=== PATIENT | female | born 1960 | race Caucasian/White ===

== ENCOUNTER → 2022-10-05 16:19 | Outpatient (CLI) | payer OTHER, SELFPAY ==
[2022-10-05 17:31] LABS: Add Manual Diff / Slide Review NO; Basophils Absolute Auto 0 /uL (0-100); Basophils Percent Auto 0.6 % (0-2); Eosinophils Absolute Auto 200 /uL (0-450); Eosinophils Percent Auto 2.6 % (2-4); Hematocrit 36.4 % (36-46); Hemoglobin 12.3 g/dL (12.0-16.0); Lymphocytes Absolute Auto 1600 /uL (1100-4500); Lymphocytes Percent Auto 26.4 % (25-40); Mean Corpuscular HGB Conc 33.8 % (30-36); Mean Corpuscular Volume 82.7 fL (80-100); Monocytes Absolute Auto 400 /uL (0-900); Monocytes Percent Auto 5.8 % (3-14); Neutrophils Absolute Auto 4000 /uL (1500-7000); Neutrophils Percent Auto 64.6 % (50-75); Platelet Count 229 X10^3/uL (150-400); Red Cell Distribution Width 15.5 % (11.6-14.8); White Blood Cell Count 6.2 X10^3/uL (4.5-11.0)
[2022-10-05 17:38] LABS: Appearance Urine UA CLEAR; Bilirubin Urine UA NEGATIVE (NEGATIVE); Color Urine UA YELLOW; Glucose Urine UA NEGATIVE (Negative); Ketones Urine UA NEGATIVE (NEGATIVE); Leukocyte Esterase Urine UA TRACE (NEGATIVE); Nitrite Urine UA NEGATIVE (Negative); Occult Blood Urine UA TRACE-INTACT (Negative); Protein Urine UA 1+ (Negative); Specific Gravity Urine UA 1.025 (1.000-1.035); Urobilinogen Urine UA 0.2 E.U./dL (0.2)
[2022-10-05 17:41] LABS: pH Urine UA 5.5 (4.5-8.0)
[2022-10-05 17:44] LABS: Bacteria Urine None Seen; Culture Indicated Urine Specimen Cultured; RBC Urine None Seen (0-5/HPF); Squamous Epithelial Cell Urine 1-5 /HPF (0-5/HPF); WBC Urine 1-5/HPF (0-5/HPF)
[2022-10-05 18:24] LABS: BUN Creatinine Ratio 23.1 (6-22); Blood Urea Nitrogen 31 mg/dL (7-17); Calcium 9.7 mg/dL (8.4-10.2); Carbon Dioxide 27 mmol/L (22-32); Chloride 100 mmol/L (98-107); Estimated Glomerular Filt Rate 44 mL/min (>60); Glucose 96 mg/dL (80-110); HEMOLYSIS < 15 (0-50); Potassium 4.3 mmol/L (3.4-5.1); Sodium 137 mmol/L (137-145)
[2022-10-07 09:34] LABS: Labcorp Hemoglobin (Hb) A1c 5.9 % (4.8-5.6)
== END ==
PROVIDERS: PCP Nurse Practitioner Family; Referring Provider Orthopaedic Surgery; Visit Provider Orthopaedic Surgery
DX: Z01.818 Encounter for other preprocedural examination (principal); Z01.812 Encounter for preprocedural laboratory examination; R73.9 Hyperglycemia, unspecified; N39.0 Urinary tract infection, site not specified
CPT/HCPCS: 36415; 80048; 81001; 83036; 85025; 87086; 93005; 93010

== ENCOUNTER 2022-12-27 08:12 | Day surgery (SDC) | payer OTHER, SELFPAY ==
[2022-12-20 08:38] VITALS: BMI 32.5
[2022-12-27] VITALS (14 sets, daily range): BP systolic 100–123; BP diastolic 45–68; PULSE 54–81; RESP 13–17; TEMP 36.1–36.3; O2SAT 98–100; BMI 31.4
--- NOTE | 2022-12-27 06:00 | DI.RAD.S_ITS ---
PROCEDURE: XR KNEE LT 1TO2V INDICATIONS: TKA TECHNIQUE: 2 view(s) of the knee acquired. COMPARISON: None. FINDINGS: Bones: Patient is status post knee joint arthroplasty. Hardware components are in expected positions. Visualized bony structures are intact. Soft tissues: Overlying postoperative changes are noted. IMPRESSION: Expected postsurgical change for left knee arthroplasty. Dictated by: Radha Mora MD, PhD on 12/27/2022 at 14:03 Approved by: Radha Mora MD, PhD on 12/27/2022 at 14:04
--- NOTE | 2022-12-27 08:52 | SUR.OPER ---
Supine on padded OR bed. Pillow under head, arms secured on padded armboards <90 degree abduction. Safety belt across torso. Non-operative leg secured with tape over blanket over lower leg. Operative leg secured in De[employer]o positioner. Foam padded brace at thigh of operative leg.
[2022-12-27] MEDS: LACTATED RINGERS 1,000 ML 42 ML IV (09:12)
[2022-12-27] MEDS: VANCOMYCIN 1,000 MG/200 ML PIGGYBACK 200 MG IV (10:01)
--- NOTE | 2022-12-27 10:23 | PM.PREOP ---
Pre-operative Note Interval Note History & Physical reviewed/Exam performed by Physician: Yes Changes to H&P: No
--- NOTE | 2022-12-27 10:24 | PM.OP.1 ---
Operative Date/Time/Diagnoses Date of procedure: 12/27/22 Time of procedure: 11:20 Pre-op diagnosis: Left knee osteoarthritis Procedure & Clinicians Procedure: Left total knee arthroplasty Same procedure as scheduled: Yes Indications: The patient has had progressively worsening left knee pain with radiographic changes consistent with arthritis. Non-operative management has failed and the patient has requested total knee replacement. The risks, benefits and alternatives to surgery were discussed with the patient prior to proceeding. Risks discussed included, but were not limited to, failure to relieve pain, stiffness, infection, nerve damage, deep venous thrombosis, pulmonary embolism, stroke, coma, heart attack, permanent paralysis and , as well as the potential need for eventual revision of the prosthetic. Surgeon: Jeimy Hadley Plumbing Technician: Yury Mac Anesthesia Type: Spinal Operative Notes Findings: Severe left knee osteoarthritis, adequate stability Closure Type: primary Specimen(s): none sent Prosthetic devices, grafts, tissues, transplants, or devices: [employer] BCS 2 size 3 femur, size 2 tibia, + 12 poly, 32 x 7-1/2 mm patella Estimated Blood Loss (mL): 250 Blood products transfused: none Tourniquet time (min): 75 Procedure in detail: The patient was seen in the pre-operative area, where the patient identified the left knee as the operative site and this was marked with my initials. The patient received pre-operative antibiotics, and was taken to the operating room and placed on the operative table in the supine position. After satisfactory anesthesia, a full time babysitter out was performed. The left leg was encircled with a tourniquet about the proximal thigh, and the leg was prepared from the toes to the tourniquet with ChloroPrep in the usual fashion and draped through sterile drapes. The leg was elevated and exsanguinated with Eschmark bandage and the tourniquet inflated to [250] mmHg pressure. A PA was used throughout the procedure and was essential for adequate retraction, establishing hemostasis and safe implantation of the components. The knee was approached through an approximately 18 cm incision centered over the patella and carried into the knee through a medial parapatellar arthrotomy. A portion of the medial and lateral meniscus was resected. Soft tissue was carefully mobilized around the patella the patella was measured with a caliper. Bone was resected from the patella and the patellar height was reconstituted with up an appropriate sized patellar component. A cover was then placed on the patella. A small amount of additional medial and lateral meniscus was resected. The distal femur was cut at 5?. A [+2] cut was used. It looked like an appropriate distal femoral cut and the cut was made without difficulty. An extramedullary guide was used for the tibial cut. 10 mm was resected off the least affected side.The tibia was prepared. The rotation was assessed. The patient was placed in extension residual medial and lateral meniscus as well as any residual bone was carefully resected. [No] additional tibia was resected. Hemostasis was achieved especially posteriorly. Additional local was injected into the posterior capsule. The extension gap was assessed and additional releases for gap balancing were performed as necessary. It was checked with the gap brazer controlled atmospheric furnace. The femoral component was trial was placed and the notch was finished. The rotation was assessed and the appropriate size femoral guide was placed on the distal femur and finishing cuts were made. There was no evidence of notching. The anterior, posterior and chamfer cuts were then made. The posterior osteophytes and soft tissues were then removed. The posterior capsule was injected with part of a mixture of 60 ml 0.25% Marcaine mixed with 20 ml Exparel for post operative pain control. The remainder of this mixture was injected into the capsule and subcutaneous tissues during cement curing. The tibial and femoral components were then placed and the knee placed through a range of motion. Range of motion was [0-130], with good stability throughout the range. The trials were then removed, and the tibia was finished. The bone was prepared with pulsatile lavage, and dried with a sponge. Cement was applied and the final prosthetics placed. Excess cement was removed during and after cement curing. A brief Betadine soak was performed. After confirming there was no extruded cement posteriorly, the final tibial insert was placed. The knee was copiously irrigated and the tourniquet deflated. Hemostasis was obtained with the Bovie cautery. The capsule was closed with interrupted nonabsorbable suture. The subcutaneous layer was closed with barbed sutures, and the skin with a running 3-0 V-Lock suture and Surgical glue. An Aquacel Ag dressing was applied and the patient was taken to recovery having tolerated the procedure well. Complications: none Post-operative Condition: stable Disposition: same day surgery Plan for aftercare: The patient will be maintained on a standard total knee replacement protocol with weight bearing as tolerated. The patient will receive aspirin and sequential compression devices for DVT prophylaxis. The patient will be discharged home when safe for the home environment.
--- NOTE | 2022-12-27 11:28 | SUR.PREOP ---
Block start time [1104] . Monitoring initiated and maintained throughout procedure. Oxygen and medications given per anesthesiologist instructions. Patient remained stable throughout procedure, no adverse reactions noted. Block end time [1118].
[2022-12-27] MEDS: CEFAZOLIN 2 GM/100 ML PREMIX 100 ML IV ×2 (11:40→20:56)
[2022-12-27] MEDS: TRANEXAMIC ACID 1,000 MG VIAL 2000 MG INJ ×2 (11:45→13:16)
[2022-12-27] MEDS: BUPIVACAINE 0.25% (PF) 60 ML, EPINEPHrine 0.3 MG INJ (12:12)
[2022-12-27] MEDS: BUPIVACAINE LIPOSOME 266 MG/20 ML VIAL INJ (12:20)
[2022-12-27] MEDS: ACETAMINOPHEN 325 MG TABLET 650 MG PO ×2 (15:15→20:56)
[2022-12-27] MEDS: IBUPROFEN 400 MG TABLET PO ×2 (15:15→20:57)
[2022-12-27] MEDS: LACTATED RINGERS 1,000 ML 100 ML IV (15:24)
[2022-12-27] MEDS: OXYCODONE IR 10 MG TABLET PO (16:09)
[2022-12-27] MEDS: ASPIRIN EC 81 MG TABLET PO (20:56)
[2022-12-27] MEDS: OXYCODONE IR 5 MG TABLET PO (20:56)
[2022-12-27] MEDS: DOCUSATE 100 MG CAPSULE PO (20:58)
[2022-12-27] MEDS: METFORMIN HCL 500 MG TABLET PO (20:58)
[2022-12-27] MEDS: ATORVASTATIN 20 MG TABLET 80 MG PO (21:00)
[2022-12-28 00:37] VITALS: BP 92/47; PULSE 69; RESP 18; TEMP 35.6; O2SAT 96
[2022-12-28] MEDS: ACETAMINOPHEN 325 MG TABLET 650 MG PO ×2 (02:00→08:19)
[2022-12-28] MEDS: IBUPROFEN 400 MG TABLET PO ×2 (02:01→06:07)
[2022-12-28] MEDS: LACTATED RINGERS 1,000 ML 100 ML IV ×2 (02:03→10:32)
[2022-12-28] MEDS: CEFAZOLIN 2 GM/100 ML PREMIX 100 ML IV (04:54)
[2022-12-28 04:55] VITALS: BP 120/63; PULSE 77; RESP 16; TEMP 35.8; O2SAT 100
[2022-12-28 06:55] LABS: Hematocrit 27.2 % (36-46); Hemoglobin 9.2 g/dL (12.0-16.0)
[2022-12-28] MEDS: ASPIRIN EC 81 MG TABLET PO (08:20)
[2022-12-28] MEDS: DOCUSATE 100 MG CAPSULE PO (08:20)
[2022-12-28] MEDS: METFORMIN HCL 500 MG TABLET PO (08:20)
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
[2022-12-28 08:30] VITALS: BP 109/53; PULSE 63; RESP 17; TEMP 36.4; O2SAT 100
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
[2022-12-28 09:34] VITALS: BP 108/52; BP 109/51; BP 68/24; PULSE 65; PULSE 67; PULSE 79
--- NOTE | 2022-12-28 09:34 | PT-IP ANOTE ---
OT states that pt's BP is 68/24 and pt will need fluids. Will hold PT and OOB with therapy until BP is in a functional range/after fluids.
[2022-12-28] MEDS: ONDANSETRON 4 MG ODT PO (10:32)
[2022-12-28] MEDS: LACTATED RINGERS 500 ML 1000 ML IV (10:58)
[2022-12-28 11:19] VITALS: BP 119/55; PULSE 63; RESP 17; TEMP 36.4; O2SAT 99
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
--- NOTE | 2022-12-28 12:38 | CM.DANOTE ---
DCP: Case received, EMR reviewed and met with patient. Spouse, Josiah, was at bedside. Introduced self and role. Was able to obtain information regarding patient's baseline activity level prior to hospitalization. DCP assessment completed with information currently available. Patient is a 62 year old female who admitted yesterday morning to the care of the orthopedic team. PCP: Dr. Núñez. Payer: confirmed: Kalyndeshawn Evens. Patient came to the hospital via private vehicle for a surgical procedure. Patient had left total knee arthroplasty. Patient has history of left knee osteoarthritis. Met with patient in her room, spouse at bedside. Patient is alert and oriented. Confirmed that they both reside in [facility]. She has been independent at baseline. She is pursuing outpatient P.T. at [facility]. P: Patient is discharging home today. Vandana Birmingham RN/Marketing Secretary Discharge Planning/Care Management CM Discharge Assessment Start: 12/28/22 12:35 Freq: Status: Active Protocol: Document 12/28/22 12:35 (Rec: 12/28/22 12:38 [id number]) Discharge Planning Assessment Assigned Meal Packer Vandana Birmingham RN/Marketing Secretary Advance Directives? No Advance Directives on File No History Provided By Patient,Medical Record Prior Living Arrangements House Household Members spouse Type of transporation used prior to Drives own vehicle admit Independent with ADL's Yes Is patient alert and oriented? Yes Caregiver for Another Yes DME Already Rented / Owned FWW / Walker Patient/Family Preference OP PT Therapy Barriers to Discharge No Discharge Plan Home Transportation Arrangement Spouse Referrals Initiated None needed Whiteboard Updated in Patient Room with Yes name and ext. # of Meal Packer Review Status In Process Next Review Type Continued Stay Review Pre-Anesthesia Assessment Start: 12/20/22 08:38 Freq: Status: Active Protocol: Document 12/20/22 08:38 CAB (Rec: 12/20/22 09:28 CAB [id number]) Pre-Anesthesia Assessment Patient Information Reviewed Via Phone Assessment Assessment Completed With Patient Diagnostic Results BMP/CMP,CBC,EKG,Urinalysis Comment Labs/EKG @ 10/05/22 Primary Care Provider Anabell Núñez Seen Specialist in Last 12 Months Yes Specialist Seen Orthopedist Primary Language Pashto Square Cutter Required No Height 5 ft 1.5 in Weight 175 lb Body Mass Index (BMI) 32.5 Hearing Ability Normal Visual Assist Glasses Dentition Type Teeth, Natural Present Barriers to Learning Memory Hx Anesthesia Reactions No Hx Family Anesthesia Reaction No Hx Malignant Hyperthermia No Hx Blood Transfusions No Anesthesia Review Requested No Contract Accountant No alcohol intake never Smoking Status Never smoker Substance Use Type does not use Pain Present Pain Reported Musculoskeletal Symptoms Abnormal Gait,Difficulty Walking,Joint Pain History of Falling (Recent or History of No ) Patient is completely paralyzed or No completely immobile Mental Status Oriented to own ability Is patient on oxygen? No Does patient have ODELL/SOB No Hx Sleep Apnea No Currently Taking a Beta Sherry No Hx Chest Pain No Hx SOB No Hx Syncope or Dizziness No Anti-Coagulant Therapy No Has a Grocery Store Clerk No Cardiac Testing No Hx Pacemaker/ICD No Pacemaker Rep Required? No Diet Type At Home Regular Dysphagia No Gastrointestinal Symptoms None Chronic UTI No Urinary Catheter Present No Hx Urinary Self Catheterization No Diabetes Yes: Pt checks blood sugar once a day HgbA1C 5.9 Date 10/05/22 Patient No Lactating No Hx Drug Resistant Organism No Presence of External or Internal Medical No Devices Received a COVID vaccine? No Marital Status Lives With spouse Current Living Arrangements House Number of Floors (Floors) One Floor Number of Stairs To Enter/Railing? 4 Support System Spouse Does the Patient Have Assistance After Yes Surgery Patient Discharge Plan Description Return Home Comment Pt advised one night length of stay per surgeon Feels Safe in Current Environment Yes Been Physically Hurt or Threatened By a No Person in Current Environment Do you have thoughts of harming yourself None or others? Are you currently considering suicide? No Do you have a plan to hurt yourself or No Plan others? Do You Have Any Spiritual Beliefs That No May Affect Your HC Choices? Do You Have Any Cultural Practices That No May Affect Your HC Choices? Comment Dannie Who Can We Speak to About Patient's Care Family, friends Identifying Code for Release of Patient Declines to issue Information Health Care Proxy/Next of Kin Josiah () Health Care Proxy Emergency Contact Name Edouard (son) Emergency Contact Advance Directives? No Power of Hat Renovator No PAC Instructions Diabetes instructions,Do not shave/clip surgical site, Durable medical equipment, Medications to take/avoid, Nasal antibiotic,No ETOH/ petroleum product on skin DOS, NPO,Post-op transportation,Pre -surgical wash,Sensory aids, Sturdy shoes/comfortable clothes,Do not bring valuables and remove jewelry
--- NOTE | 2022-12-28 13:30 | PC.NURSE ---
Pt discharged home at 1320, escorted off floor in wheelchair, accompanied by spouse and hospital staff. IV removed, discharge teaching reviewed including follow up appointments and worsening symptoms. Patient left the floor with all belongings.
== END 2022-12-28 13:32 | disposition home or self-care (01) ==
LOC: OR 08:13 → AC 08:18
PROVIDERS: PCP Nurse Practitioner Family; Referring Provider Orthopaedic Surgery; Visit Provider Orthopaedic Surgery
PROC: 0SRD0JZ Replacement of Left Knee Joint with Synthetic Substitute, Open Approach (ICD-10-PCS; CPT 27447; principal; 2022-12-27 10:45)
DX: M17.12 Unilateral primary osteoarthritis, left knee (principal); E66.9 Obesity, unspecified; Z68.33 Body mass index [BMI] 33.0-33.9, adult
CPT/HCPCS: 27447; 36415; 64450; 73560; 82962; 85014; 85018; 97161; 97165; 97530; C1776; C9290; J0171; J0690; J2250; J2704; J3010

== ENCOUNTER 2023-03-23 13:26 | Emergency (ER) | payer MEDICARE, SELFPAY ==
[2022-12-27 14:19] VITALS: BMI 31.4
[2023-03-23] VITALS (8 sets, daily range): BP systolic 109–127; BP diastolic 61–72; PULSE 57–96; RESP 14–31; TEMP 36.3; O2SAT 98–100; BMI 26.6
--- NOTE | 2023-03-23 13:46 | DI.CT.S_ITS ---
PROCEDURE: CT ABDOMEN PELVIS WO CON INDICATIONS: N/V/UNINTENTIONAL WEIGHT LOSS TECHNIQUE: Noncontrast 5 mm thick sections acquired from the diaphragms to the symphysis. 5 mm coronal and sagittal reformats were then performed. For radiation dose reduction, the following was used: automated exposure control, adjustment of mA and/or kV according to patient size. COMPARISON: None. FINDINGS: Image quality: Diagnostic ABDOMEN: Lung bases: Lung bases are clear. Heart size is normal. Multivessel atherosclerotic calcifications of the coronary arteries. Solid organs: Liver: Liver is normal in size. Gallbladder: Gallbladder contains multiple high density material in the dependent portions, likely representing multiple gallstones. No CT evidence for acute cholecystitis. Pancreas: Pancreas is normal in contours. No peripancreatic inflammation. Spleen: Spleen is normal in size. Adrenal Glands: No adrenal nodules. Kidneys/Ureters: Kidneys are normal in size. No hydronephrosis. No hydroureter. No perinephric or periureteral stranding. There is a 5 mm nonobstructing stone in the left kidney measuring 365 Hounsfield units. Left renal hypodensity incompletely characterized but likely representing a cyst. Peritoneum and bowel: Unenhanced bowel loops demonstrate normal wall thickness and caliber. No free fluid or air. No evidence for bowel obstruction. No acute inflammatory changes. Normal appendix. Nodes and vessels: No retroperitoneal or mesenteric adenopathy by size criteria. Aorta and inferior vena cava are normal in caliber. Scattered atherosclerotic calcifications. Miscellaneous: No ventral hernias. PELVIS: Genitourinary: Bladder wall thickness is normal. Miscellaneous: No inguinal hernias or adenopathy. Bones: Visualized osseous structures appear intact without acute fracture or focal destructive lesion. No acute compression fractures of the imaged spine. IMPRESSION: 1. CT abdomen and pelvis without acute abnormalities. 2. Cholelithiasis without CT evidence for acute cholecystitis. 3. Atherosclerosis. 4. A 5 mm nonobstructing left renal stone. No evidence for obstructive uropathy. Dictated by: Ameya De La Garza M.D. on 03/23/2023 at 15:48 Approved by: Ameya De La Garza M.D. on 03/23/2023 at 15:53
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
--- NOTE | 2023-03-23 13:55 | DI.RAD.S_ITS ---
PROCEDURE: XR CHEST 1V INDICATIONS: GEN WEAKNESS, UNINTENTIONAL WEIGHT LOSS TECHNIQUE: One view of the chest was acquired. COMPARISON: None. FINDINGS: Surgical changes and devices: None. Lungs and pleura: Lungs are clear. No pleural effusions or pneumothorax. Mediastinum: Mediastinal contours appear normal. Heart size is normal. Bones and chest wall: No suspicious bony lesions. Overlying soft tissues appear unremarkable. IMPRESSION: No acute cardiopulmonary abnormalities or focal airspace disease. Dictated by: Ameya De La Garza M.D. on 03/23/2023 at 14:35 Approved by: Ameya De La Garza M.D. on 03/23/2023 at 14:35
[2023-03-23] MEDS: SODIUM CHLORIDE 0.9% 1,000 ML 1000 ML IV (14:32)
[2023-03-23 14:43] LABS: Add Manual Diff / Slide Review NO; Basophils Absolute Auto 0 /uL (0-100); Basophils Percent Auto 0.6 % (0-2); Eosinophils Absolute Auto 0 /uL (0-450); Eosinophils Percent Auto 0.9 % (2-4); Hemoglobin 11.5 g/dL (12.0-16.0); Lymphocytes Absolute Auto 1300 /uL (1100-4500); Lymphocytes Percent Auto 24.3 % (25-40); Mean Corpuscular HGB Conc 33.7 % (30-36); Mean Corpuscular Hemoglobin 27.5 PG (26-34); Mean Corpuscular Volume 81.7 fL (80-100); Monocytes Absolute Auto 400 /uL (0-900); Neutrophils Absolute Auto 3500 /uL (1500-7000); Neutrophils Percent Auto 66.2 % (50-75); Platelet Count 177 X10^3/uL (150-400); Red Blood Cell Count 4.16 X10^6/uL (4.0-5.2); White Blood Cell Count 5.2 X10^3/uL (4.5-11.0)
[2023-03-23 14:48] LABS: Alanine Aminotransferase 22 IU/L (<35); Albumin 4.3 g/dL (3.5-5.0); Albumin Globulin Ratio 1.6 (1.0-2.8); Alkaline Phosphatase 95 U/L (38-126); Aspartate Aminotransferase 35 IU/L (14-36); BUN Creatinine Ratio 9.7 (6-22); Bilirubin Total 0.5 mg/dL (0.2-1.3); Blood Urea Nitrogen 23 mg/dL (7-17); Calcium 10.6 mg/dL (8.4-10.2); Carbon Dioxide 21 mmol/L (22-32); Chloride 100 mmol/L (98-107); Creatine Kinase 44 U/L (30-135); Estimated Glomerular Filt Rate 22 mL/min (>60); Globulin 2.7 g/dL (1.7-4.1); Glucose 87 mg/dL (80-110); HEMOLYSIS < 15 (0-50); Lipase 271 U/L (23-300); Sodium 136 mmol/L (137-145)
[2023-03-23 14:59] LABS: Troponin I 0.019 ng/mL (0.01-0.034)
[2023-03-23 15:26] LABS: Thyroid Stimulating Hormone 2.09 uIU/mL (0.47-4.68)
[2023-03-23 16:05] LABS: Appearance Urine UA CLOUDY; Bilirubin Urine UA 2+ (NEGATIVE); Color Urine UA YELLOW; Glucose Urine UA NEGATIVE (Negative); Ketones Urine UA 3+ (NEGATIVE); Leukocyte Esterase Urine UA NEGATIVE (NEGATIVE); Nitrite Urine UA NEGATIVE (Negative); Occult Blood Urine UA 2+ (Negative); Protein Urine UA 3+ (Negative); Specific Gravity Urine UA >=1.030 (1.000-1.035)
[2023-03-23 16:20] LABS: Bacteria Urine Moderate (10-30); Ictotest Urine Negative (Negative); RBC Urine 1-5/HPF (0-5/HPF); Squamous Epithelial Cell Urine 5-10 /HPF (0-5/HPF); WBC Urine 10-30/HPF (0-5/HPF)
[2023-03-23 16:21] LABS: Calcium Oxalate Crystals Urine Moderate; Culture Indicated Urine Specimen Cultured; Granular Casts Urine 1-5/LPF; Hyaline Casts Urine 1-5/LPF
--- NOTE | 2023-03-23 16:38 | PC.NURSE ---
Pt states nothing tastes good so she has no desire to eat or drink. She reports generalized weakness since her knee surgery.
== END 2023-03-23 16:53 | disposition home or self-care (01) ==
PROVIDERS: Emergency Provider Emergency Medicine; PCP Nurse Practitioner Family
DX: R53.1 Weakness (principal); R63.8 Other symptoms and signs concerning food and fluid intake; R79.89 Other specified abnormal findings of blood chemistry
CPT/HCPCS: 36415; 71045; 74176; 80053; 81001; 82550; 83690; 84443; 84484; 85025; 87086; 96360; 99284

== ENCOUNTER → 2023-12-02 09:45 | Outpatient (CLI) | payer MEDICARE, SELFPAY ==
[2022-12-27 14:19] VITALS: BMI 31.4
--- NOTE | 2023-12-02 10:04 | EKG_ITS ---
[facility] [address] [place] [address] Test Date: 2023-12-02 Pat Name: Aidee Molina Department: [facility] Room: Gender: Female Core Inspector: : 1960 Requested By: Order Number: [id number] Reading MD: Jose Ortiz Measurements Intervals [place] Rate: 69 P: 36 MI: 172 QRS: -7 QRSD: 82 T: 48 QT: 386 QTc: 413 Interpretive Statements Normal sinus rhythm Minimal voltage criteria for LVH, may be normal variant ( R in aVL ) Electronically Signed On 12-04-2023 16:33:55 PDT by Jose Ortiz
[2023-12-02 10:50] LABS: Add Manual Diff / Slide Review NO; Basophils Absolute Auto 0 /uL (0-100); Basophils Percent Auto 0.7 % (0-2); Eosinophils Absolute Auto 100 /uL (0-450); Eosinophils Percent Auto 1.5 % (2-4); Hematocrit 33.4 % (36-46); Hemoglobin 11.1 g/dL (12.0-16.0); Lymphocytes Absolute Auto 800 /uL (1100-4500); Lymphocytes Percent Auto 15.7 % (25-40); Mean Corpuscular HGB Conc 33.2 % (30-36); Mean Corpuscular Hemoglobin 28.2 PG (26-34); Mean Corpuscular Volume 85.1 fL (80-100); Monocytes Absolute Auto 300 /uL (0-900); Monocytes Percent Auto 7.1 % (3-14); Neutrophils Absolute Auto 3600 /uL (1500-7000); Platelet Count 234 X10^3/uL (150-400); Red Blood Cell Count 3.93 X10^6/uL (4.0-5.2); Red Cell Distribution Width 14.3 % (11.6-14.8); White Blood Cell Count 4.8 X10^3/uL (4.5-11.0)
[2023-12-02 11:04] LABS: Appearance Urine UA CLEAR; Bilirubin Urine UA NEGATIVE (NEGATIVE); Color Urine UA YELLOW; Glucose Urine UA NEGATIVE (Negative); Hemoglobin A1C% w Est Avg Glu 4.9 % (4.0-6.0); Ketones Urine UA NEGATIVE (NEGATIVE); Leukocyte Esterase Urine UA TRACE (NEGATIVE); Nitrite Urine UA NEGATIVE (Negative); Occult Blood Urine UA NEGATIVE (Negative); Protein Urine UA NEGATIVE (Negative); Specific Gravity Urine UA >=1.030 (1.000-1.035); Urobilinogen Urine UA 0.2 E.U./dL (0.2)
[2023-12-02 11:10] LABS: pH Urine UA 5.5 (4.5-8.0)
[2023-12-02 11:12] LABS: BUN Creatinine Ratio 25.1 (6-22); Blood Urea Nitrogen 49 mg/dL (7-17); Carbon Dioxide 23 mmol/L (22-32); Chloride 109 mmol/L (98-107); Estimated Glomerular Filt Rate 28 mL/min (>60); Glucose 81 mg/dL (80-110); HEMOLYSIS < 15 (0-50); Potassium 4.5 mmol/L (3.4-5.1); Sodium 141 mmol/L (137-145)
[2023-12-02 12:41] LABS: Urine Volume 10mL (spun)
[2023-12-02 12:42] LABS: Bacteria Urine Moderate (10-30); Culture Indicated Urine Specimen Cultured; Mucus Urine 1+ (Negative); RBC Urine None Seen (0-5/HPF); Squamous Epithelial Cell Urine 0-1 /HPF (0-5/HPF); Transitional Epi Cells Urine 0-1/HPF (0-5/HPF); WBC Urine 1-5/HPF (0-5/HPF)
== END ==
PROVIDERS: PCP Nurse Practitioner Family; Referring Provider Orthopaedic Surgery; Visit Provider Orthopaedic Surgery
DX: Z01.818 Encounter for other preprocedural examination (principal); R73.9 Hyperglycemia, unspecified; Z01.812 Encounter for preprocedural laboratory examination; N39.0 Urinary tract infection, site not specified
CPT/HCPCS: 36415; 80048; 81001; 83036; 85025; 87086; 93005

== ENCOUNTER 2024-01-11 06:02 | Day surgery (SDC) | payer MEDICARE, SELFPAY ==
[2022-12-27 14:19] VITALS: BMI 31.4
[2024-01-02 08:43] VITALS: BMI 32.1
[2024-01-11] VITALS (12 sets, daily range): BP systolic 112–167; BP diastolic 44–90; PULSE 50–76; RESP 12–18; TEMP 36.2–37.6; O2SAT 92–100; BMI 32.6
--- NOTE | 2024-01-11 06:00 | DI.RAD.S_ITS ---
PROCEDURE: XR KNEE RT 1TO2V INDICATIONS: tka TECHNIQUE: 2 view(s) of the knee acquired. COMPARISON: [facility], CR, XR KNEE 4+ VIEWS RIGHT, 10/19/2023, 14:15. [facility], CR, XR KNEE LT 1TO2V, 12/27/2022, 13:38. FINDINGS: Bones: Patient is status post right knee joint arthroplasty. Hardware components are in expected positions. Visualized bony structures are intact. Soft tissues: Overlying postoperative changes are noted. IMPRESSION: Expected post-operative appearance of a right knee arthroplasty. Dictated by: Audrey Yung M.D. on 01/11/2024 at 10:43 Approved by: Audrey Yung M.D. on 01/11/2024 at 10:44
[2024-01-11] MEDS: LACTATED RINGERS 1,000 ML 42 ML IV ×2 (06:51→09:33)
[2024-01-11] MEDS: ACETAMINOPHEN 325 MG TABLET 975 MG PO (06:51)
[2024-01-11] MEDS: CELECOXIB 200 MG CAPSULE 400 MG PO (06:52)
[2024-01-11] MEDS: VANCOMYCIN 1,000 MG/200 ML PIGGYBACK 200 MG IV (06:52)
--- NOTE | 2024-01-11 07:22 | PM.PREOP ---
Pre-operative Note Interval Note History & Physical reviewed/Exam performed by Physician: Yes Changes to H&P: No
--- NOTE | 2024-01-11 07:23 | PM.OP.1 ---
Operative Date/Time/Diagnoses Date of procedure: 01/11/24 Time of procedure: 07:45 Pre-op diagnosis: right knee OA Post-op diagnosis: same Procedure & Clinicians Procedure: Right total knee arthroplasty Same procedure as scheduled: Yes Indications: The patient has had progressively worsening right knee pain with radiographic changes consistent with arthritis. Non-operative management has failed and the patient has requested total knee replacement. The risks, benefits and alternatives to surgery were discussed with the patient prior to proceeding. Risks discussed included, but were not limited to, failure to relieve pain, stiffness, infection, nerve damage, deep venous thrombosis, pulmonary embolism, stroke, coma, heart attack, permanent paralysis and , as well as the potential need for eventual revision of the prosthetic. Surgeon: Jeimy Hadley Road Equipment Operator: Yury Mac Anesthesia Type: General and Peripheral nerve block Operative Notes Findings: Severe right knee OA, adequate stability, soft but adequate bone Closure Type: primary Specimen(s): none sent Prosthetic devices, grafts, tissues, transplants, or devices: Hadley and nephNational Institutes of Health (NIH) journey PCS to size 3 femur, size 2 tibia, +10 poly, patella 32 by 7.5 Estimated Blood Loss (mL): 250 Blood products transfused: none Tourniquet time (min): 81 Procedure in detail: The patient was seen in the pre-operative area, where the patient identified the right knee as the operative site and this was marked with my initials. The patient received pre-operative antibiotics, and was taken to the operating room and placed on the operative table in the supine position. After satisfactory anesthesia, a director multimedia out was performed. The right leg was encircled with a tourniquet about the proximal thigh, and the leg was prepared from the toes to the tourniquet with ChloroPrep in the usual fashion and draped through sterile drapes. The leg was elevated and exsanguinated with Eschmark bandage and the tourniquet inflated to [250] mmHg pressure. A PA was used during the procedure was essential for intraoperative retraction and safe implantation of the components. The right knee was approached through an approximately 18 cm incision centered over the patella and carried into the knee through a medial parapatellar arthrotomy. Portion of the medial and lateral meniscus was resected. Soft tissue was carefully mobilized around the patella the patella was measured with a caliper. Bone was resected from the patella and the patellar height was reconstituted with up an appropriate sized patellar component. A cover was then placed on the patella. A small amount of additional medial and lateral meniscus was resected. The Cori robotic pins were placed in the femur. The guide was pinned to the tibia and the knee was carefully navigated robotically. We traced the knee and then made a plan after determining the center of rotation. It was planned to optimize range of motion and stability throughout range of motion. The robotic bur was used for the distal femoral resection. It looked like an appropriate distal femoral cut and the cut was made without difficulty. The rotation was assessed and the appropriate size femoral guide was placed on the distal femur and finishing cuts were made. There was no evidence of notching. The anterior, posterior and chamfer cuts were then made. The posterior osteophytes and soft tissues were then removed. The posterior capsule was injected with part of a mixture of 60 ml 0.25% Marcaine mixed with 20 ml Exparel for post operative pain control. The remainder of this mixture was injected into the capsule and subcutaneous tissues during cement curing. The tibia was prepared by carefully navigated the guide with the robotic assistance and then resecting the proximal tibial bone. The rotation was assessed. The patient was placed in extension residual medial and lateral meniscus as well as any residual bone was carefully resected. [No] additional tibia was resected. Hemostasis was achieved especially posteriorly. Additional local was injected into the posterior capsule. The extension gap was assessed. The femoral component was trial was placed and the notch was finished. Trial tibial and femoral components were then placed and the knee placed through a range of motion. Range of motion was [0-130], with good stability throughout the range. The trials were then removed, and the tibia was finished. The bone was prepared with pulsatile lavage, and dried with a sponge. Cement was applied and the final prosthetics placed. Excess cement was removed during and after cement curing. A brief Betadine soak was performed. After confirming there was no extruded cement posteriorly, the final tibial insert was placed. The knee was copiously irrigated and the tourniquet deflated. Hemostasis was obtained with the Bovie cautery. The capsule was closed with interrupted # 1 Vicryl suture. The subcutaneous layer was closed with barbed sutures, and the skin with a running 3-0 V-Lock suture and Surgical glue. An Aquacel Ag dressing was applied and the patient was taken to recovery having tolerated the procedure well. Complications: none Post-operative Condition: stable Disposition: Acute Care Plan for aftercare: The patient will be maintained on a standard total knee replacement protocol with weight bearing as tolerated. The patient will receive aspirin and sequential compression devices for DVT prophylaxis. The patient will be discharged home when safe for the home environment.
--- NOTE | 2024-01-11 07:41 | SUR.PREOP ---
Block start time [0725] . Monitoring initiated and maintained throughout procedure. Oxygen and medications given per anesthesiologist instructions. Patient remained stable throughout procedure, no adverse reactions noted. Block end time [0735].
[2024-01-11] MEDS: CLINDAMYCIN 900 MG/50 ML PIGGYBACK 50 MG IV ×2 (07:50→16:43)
[2024-01-11] MEDS: TRANEXAMIC ACID 1,000 MG VIAL 2000 MG INJ ×2 (08:21→09:49)
[2024-01-11] MEDS: BUPIVACAINE LIPOSOME 266 MG/20 ML VIAL INJ (08:31)
[2024-01-11] MEDS: BUPIVACAINE 0.25% (PF) 60 ML, EPINEPHrine 0.3 MG INJ (08:32)
--- NOTE | 2024-01-11 08:39 | SUR.OPER ---
Supine on padded OR bed. Pillow under head, arms secured on padded armboards <90 degree abduction. Safety belt across torso. Non-operative leg secured with tape over blanket over lower leg. Operative leg secured in DeMayo/Cornelius/Nathe positioner. Foam padded brace at thigh of operative leg.
[2024-01-11] MEDS: LACTATED RINGERS 1,000 ML 100 ML IV ×2 (12:00→21:06)
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
[2024-01-11] MEDS: ACETAMINOPHEN 325 MG TABLET 650 MG PO (16:44)
--- NOTE | 2024-01-11 18:32 | PC.NURSE ---
Patient arrived from PACU at 1115 she is initially lethargic, but easy to awaken. Initially she reports numbness to BLE's. She is able to wiggle toes and move BLE's. She denies pain and reports feeling returns to normal to BLE's this afternoon. She is assisted to BSC and unable to void the first time, but up a second time to BSC with PT and able to void. Patient reports pain up to 4/10 this afternoon. She states she would like to stick with tylenol for pain control, if possible and avoid ibuprofen due to her kidney function. Upon reassessment she rates pain 3/10 with is tolerable. IVF LR at 100 ml/hr, SCDS, bed alarm, call light in reach, frequent rounding.
[2024-01-11] MEDS: DOCUSATE 100 MG CAPSULE PO (21:06)
[2024-01-11] MEDS: ASPIRIN EC 81 MG TABLET PO (21:06)
[2024-01-12] MEDS: CLINDAMYCIN 900 MG/50 ML PIGGYBACK 50 MG IV (01:30)
[2024-01-12 06:47] LABS: Hematocrit 28.7 % (36-46); Hemoglobin 9.5 g/dL (12.0-16.0)
[2024-01-12 07:00] VITALS: BP 109/46; PULSE 66; RESP 16; TEMP 36.2; O2SAT 99
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
[2024-01-12] MEDS: FOLIC ACID 1 MG TABLET PO (08:24)
[2024-01-12] MEDS: DOCUSATE 100 MG CAPSULE PO (08:24)
[2024-01-12] MEDS: ASPIRIN EC 81 MG TABLET PO (08:24)
[2024-01-12] MEDS: ACETAMINOPHEN 325 MG TABLET 650 MG PO (08:26)
--- NOTE | 2024-01-12 09:40 | PT.IPTN ---
Current Diagnoses Unilateral primary osteoarthritis, right knee (01/11/24) Surgery Performed Operation Date: 01/11/24 07:45 Actual Procedures p Total Knee Arthroplasty - Robot(Right) - Jeimy Hadley MD Physical Therapy Treatment Note M2 PT-IP Current Condition Start: 01/11/24 15:01 Freq: NEEDED Status: Discharge Protocol: Document 01/11/24 15:02 KJ (Rec: 01/11/24 15:12 KJ [id number]) Physical Therapy Current Condition Current Condition Evaluation Date 01/11/24 Treatment Diagnosis impaired mobility Onset Date BRENDON today M3 PT-IP Subjective Start: 01/11/24 15:01 Freq: NEEDED Status: Discharge Protocol: Document 01/12/24 09:40 AB (Rec: 01/12/24 12:16 AB [id number]) Subjective Physical Therapy Visit Type Type Treatment Note Visit Start Time 09:40 Visit Stop Time 10:30 Number of SOLAR DEVELOPMENT ENGINEER Visits 0 Physical Therapy Visit Comments Patient Comments agreeable to do PT Therapy Pain Assessment Pain When Pain Assessed During Mobility Pain Present Pain Present Pain Reported Location Right Knee Intensity 2 Scale Used Numeric (0 - 10) Pain Management Techniques Apply Cold,Distraction, Modification of Treatment,Re- positioning,Timing of Activity with Medications M4 PT-IP Mobility and Gait Start: 01/11/24 15:01 Freq: NEEDED Status: Discharge Protocol: Document 01/12/24 09:40 AB (Rec: 01/12/24 12:16 AB [id number]) PT-Bed Mobility Assessment Supine to Sit Supine to Sit Standby Assistance PT-Transfer Assessment Sit to and From Stand Sit to and from Stand Contact Guard Assistance, Minimal Assistance,1 Person Assistance,Use of Upper Extremities Equipment Transfer Assistive Device Gait Belt,Front Wheeled Walker Orthotic/Prosthetic Devices or Brace: No Transfers Transfer Destination Chair Transfer Technique ambulated Transfer Ability Level of Assist Contact Guard Assistance, Minimal Assistance,1 Person Assistance,Use of Upper Extremities Comments Mobility Comments pt supine in bed. spouse in room. BP in supine: 109/46. pt completed supine to sit SBA . no c/o dizziness. requested to use the toilet. completed sit to stand CGA and cues for techniques. pt can be impulsive. pt ambulated to the toilet using FWW CGA. assisted pt with brief management. completed sit to stand from the toilet using grab bar min A and cues. pt ambulated to the sink using FWW CGA. able to maintain standing CGA while completing handwashing. pt ambulated to the chair using FWW CGA. caregiver training conducted. educated spouse on how to use safety belt and how to assist pt. spouse assist pt with sit to stand and ambulation using fWW CGA towards the stairs. pt completed up/down steps using B rails with spouse assisting. pt ambulated ~ 10 ft using FWW CGA but c/o feeling dizzy and feeling faint. sat pt on w/c. assisted pt back to her room . BP checked: 105/57. pt transferred to chair using FWW CGA. positioned pt on the chair. call light and table placed within reach. BP checked again: 109/57. pt and spouse without any concerns. Gait Assessment Gait Gait Assistance Required: Contact Guard Assist Distance (Feet) 100 Able to Maintain Weight Bearing Status Yes During Gait Assistive Devices Assistive Device Gait Belt,Front Wheeled Walker Orthotic/Prosthetic Devices or Brace: No Gait Deviations General Gait Pattern Antalgic,Decreased Stride Length,Decreased Feet Clearance,Step-to Gait Factors Limiting Gait Function Factors Limiting Gait Function Decreased Activity Tolerance, Decreased Strength,Difficulty Following Directions,Limited Range of Motion,Pain,Poor Balance,Poor Safety Awareness Stair Climbing Assessment Evaluation Level of Assist On Stairs Contact Guard Assistance Devices Stair Climbing Assistive Devices Left Railing,Right Railing Technique/Endurance Stair Climbing Direction Ascend and Descend Stair Climbing Technique Step to Step Number of Steps Climbed 3 Stair Climbing Set # Repetitions (reps) 1 PT-Balance Assessment Sitting Balance and Reactions Static Sitting Balance Ability Normal Dynamic Sitting Balance Ability Good Standing Balance and Reactions Static Standing Balance Ability Fair Dynamic Standing Balance Ability Fair Device Used FWW M5 PT-IP Objective Assessments Start: 01/11/24 15:01 Freq: NEEDED Status: Discharge Protocol: Document 01/11/24 15:02 KJ (Rec: 01/11/24 15:12 KJ [id number]) Orientation Orientation/Cognition Level of Alertness Alert Orientation Name,Age,Birthday,Month, Situation Language Function Ability No Deficits Noted Safety Awareness Understands Safety Issues Gross Range of Motion Upper Extremity ROM Assessment Within Functional Limits Lower Extremity ROM Assessment Right Impaired Strength Upper Extremity Strength Assessment Within Functional Limits Lower Extremity Strength Assessment Right Impaired Knee limited by dressings and pain Coordination Assessment Gross Coordination Gross Coordination WNL M6 PT-IP Treatment Start: 01/11/24 15:01 Freq: NEEDED Status: Discharge Protocol: Document 01/12/24 09:40 AB (Rec: 01/12/24 12:16 AB [id number]) Physical Therapy Treatment Exercises Exercises Heel Slides Education Education Provided Safety M7 PT-IP Assessment and Plan Start: 01/11/24 15:01 Freq: NEEDED Status: Discharge Protocol: Document 01/12/24 09:40 AB (Rec: 01/12/24 12:16 AB [id number]) PT Summary Assessment and Plan Potential Rehabilitation Potential Good Summary Impairments Pain,ROM,Strength,Balance, Coordination,Cognition,Bed Mobility,Transfers,Gait, Activity Tolerance Progress Towards Goals Slow Progress due to Activity Tolerance Assessment Summary pt requiring CGA with mobility using FWW. caregiver training conducted and spouse was able to assist pt with mobility safely. pt may go home when medically stable. Goals Bed Mobility Goal Independent Transfer Goal Independent,Front Wheeled Walker Gait Goal Independent,Front Wheel Walker Gait Distance 150 Other Goals up/down 4 steps using B rails SBA Days to Meet Goals 5 Frequency of Treatment Frequency Of Treatment Once a Day Treatment Plan Physical Therapy Treatment Plan Bed Mobility Training,Transfer Training,Gait Training, Therapeutic Exercise Recommendations To Nursing Amount of Assist Needed 1 Person Assist Discharge Recommendations PT Discharge Recommendations Home with Assistance Transportation Needs at Discharge Private Vehicle
--- NOTE | 2024-01-12 10:26 | CM.DANOTE ---
DCP Assessment Note: Pt is a 63yo female, resident of [place], is POD1 R TKA. Pt lives in a house with her , Josiah. Pt's Primary Care Provider is Dr. Adi Rodney and insurance is Medicare and [employer] Reviewed chart and team rounds for pt's medical status and initial discharge needs. Per PT/OT eval, pt recommended to discharge home with spouse assistance. DCP met w/patient at bedside; introduced self and role. Present in the room is pt's , Josiah. Pt was getting her IV taken out by PCT. Patient was found in bed, alert and oriented, cooperative with assessment. Pt confirmed living situation and good support in . Pt expressed preference in discharging home today and following up with OP PT. Pt has a hx of TKA before in left knee and feels confident in discharge plans/arrangements. Pt declined referral to at this time. Plan: Discharge orders in, pt to discharge home with spouse assistance. CM team will follow closely for coordination of discharge plans. CORTNEY Person Discharge Planning/Care Management CM Discharge Assessment Start: 01/12/24 10:24 Freq: Status: Active Protocol: Document 01/12/24 10:24 MW (Rec: 01/12/24 10:26 MW [id number]) Discharge Planning Assessment Assigned Integration Manager AGATA Jaffe DPOA/Assigned Designee Name Roberta Rahman Contact Information [phone] Advance Directives? No Advance Directives on File No History Provided By Patient,Family Member,Medical Record Expected Length of Stay 1 Has Patient been admitted in last 30 No days? Prior Living Arrangements House Household Members spouse Type of transporation used prior to Drives own vehicle admit Independent with ADL's Yes Is patient alert and oriented? Yes Caregiver for Another No DME Already Rented / Owned FWW / Walker Patient/Family Preference OP PT Therapy Comment Pt has established OP PT at [facility] with MAHNAZ Krause. Barriers to Discharge No Discharge Plan Home Transportation Arrangement Spouse Referrals Initiated None needed Whiteboard Updated in Patient Room with Yes name and ext. # of Integration Manager Comment [phone] Please Provide Date Initial DC 01/12/24 Assessment Was Performed Next Review Type Continued Stay Review
--- NOTE | 2024-01-12 11:09 | PC.NURSE ---
Patient is A&OX4, VSS, afebrile. She denies pain while lying in bed. NAVEEN dressing flashing green light, jeanine wrap c/d/i, no edema to RLE noted. Patient is able to tolerate breakfast well and working with PT on the stairs. She is cleared for discharge. RN assists her getting dressed. She verbalizes understanding of medications, activity limitations, site care, s/sx of infection as well as follow up postop appointment on 01/25/24. She is escorted via w/ch by SENIOR MAINFRAME DEVELOPER to private vehicle with for discharge home at 1100 a.m. She has all of her personal belongings.
== END 2024-01-12 11:00 | disposition home or self-care (01) ==
LOC: OR 06:03 → AC 06:05
PROVIDERS: Referring Provider Physician Assistant; Visit Provider Orthopaedic Surgery
PROC: 0SRC0JZ Replacement of Right Knee Joint with Synthetic Substitute, Open Approach (ICD-10-PCS; CPT 27447; principal; 2024-01-11 07:45)
DX: M17.11 Unilateral primary osteoarthritis, right knee (principal); G89.18 Other acute postprocedural pain; M25.761 Osteophyte, right knee
CPT/HCPCS: 27447; 36415; 64450; 73560; 82962; 85014; 85018; 97110; 97116; 97161; 97165; 97530; 97535; C1776; C9290; J0171; J1100; J1170; J2405; J2704